=== PATIENT | male | born 1980 | race Two or more races ===

== ENCOUNTER 2016-09-06 11:13 | Emergency (ER) | payer SELFPAY ==
[~2016-09-06] VITALS: Ht 170.2 cm; Wt 59.5 kg
[2016-09-06 11:28] VITALS: BP 119/77
== END 2016-09-06 13:08 | disposition home or self-care (01) ==
LOC: ED 12:45
DX: S01.01XA Laceration without foreign body of scalp, initial encounter (principal); W20.8XXA Other cause of strike by thrown, projected or falling object, initial encounter; Y93.89 Activity, other specified; Y99.8 Other external cause status; Y92.009 Unspecified place in unspecified non-institutional (private) residence as the place of occurrence of the external cause
CPT/HCPCS: 12001; 99283